=== PATIENT | male | born 1980 | race Two or more races ===

== ENCOUNTER 2016-04-23 04:37 | Emergency (ER) | payer OTHER ==
[~2016-04-23] VITALS: Ht 167.6 cm; Wt 68.0 kg
[2016-04-23] MEDS ORDERED: FLUORESCEIN SODIUM OPHTH 1 EA STRIP RIGHTEYE STA (04:55)
[2016-04-23] MEDS ORDERED: TETRACAINE HCL/PF 0.5% UD 2 ML BOTTLE RIGHTEYE ONE (05:00)
[2016-04-23] MEDS ORDERED: TETRACAINE HCL/PF 0.5% UD 2 ML BOTTLE ONE (05:00)
[2016-04-23] MEDS ORDERED: FLUORESCEIN SODIUM OPHTH 1 EA STRIP ONE (05:00)
[2016-04-23 07:09] LABS: BASOPHILS # (AUTO) 0.1 /CMM (0.0-0.2); BASOPHILS % (AUTO) 0.8 % (0.0-2.0); DIFF TOTAL % 100 %; EOSINOPHILS % (AUTO) 0.4 % (0.0-6.0); HEMATOCRIT 44 % (39-51); HEMOGLOBIN 14.6 g/dL (13.5-17.5); LYMPHOCYTES # (AUTO) 1.6 /CMM (0.8-4.8); LYMPHOCYTES % (AUTO) 17.8 % (20.0-44.0); MEAN CORPUSCULAR HEMOGLOBIN 28 PG (26.0-33.0); MEAN CORPUSCULAR HGB CONC 34 g/dl (31.0-36.0); MEAN CORPUSCULAR VOLUME 85 fL (80-96); MONOCYTES # (AUTO) 0.5 /CMM (0.1-1.30); MONOCYTES % (AUTO) 5.4 % (2.0-12.0); NEUTROPHILS # (AUTO) 6.9 /CMM (1.8-8.9); NEUTROPHILS % (AUTO) 75.6 % (43.0-81.0); PLATELET COUNT (AUTO) 302 /CMM (150-450); RED BLOOD CELL COUNT(AUTO) 5.16 MIL/uL (4.5-6.0); WHITE BLOOD COUNT (AUTO) 9.1 K/uL (4.3-11.0)
[2016-04-23 07:16] LABS: CALCIUM, SERUM 8.7 mg/dL (8.5-10.1); CREATININE 0.9 mg/dL (0.6-1.3); POTASSIUM 4.4 mmol/L (3.5-5.1)
[2016-04-23 07:30] LABS: INR 0.96 (0.87-1.13); PROTHROMBIN TIME 10.4 SECS (9.5-12.7)
[2016-04-23] MEDS ORDERED: IV NS 0.9% 1,000 ML ONE ×2 (13:00→18:20)
[2016-04-23] MEDS ORDERED: PROPOFOL 20 ML IV ONE ×2 (13:00→18:20)
[2016-04-23] MEDS ORDERED: PROPOFOL 200 MG/20 ML VIAL IV ONE (13:00)
[2016-04-23] MEDS ORDERED: IV SET PRIMARY PUMP SET 1 EA INFUS.SET MC ONE (13:00)
[2016-04-23] MEDS ORDERED: IV SET PRIMARY 1 EA INFUS.SET MC ONE (18:20)
[2016-04-23 19:28] VITALS: BP 135/86
== END 2016-04-23 20:31 | disposition home or self-care (01) ==
LOC: ER 04:40
DX: S93.125A Dislocation of metatarsophalangeal joint of left lesser toe(s), initial encounter (principal); S92.332A Displaced fracture of third metatarsal bone, left foot, initial encounter for closed fracture; S02.31XA Fracture of orbital floor, right side, initial encounter for closed fracture; S05.11XA Contusion of eyeball and orbital tissues, right eye, initial encounter; F17.200 Nicotine dependence, unspecified, uncomplicated; Z91.013 Allergy to seafood; V49.49XA Driver injured in collision with other motor vehicles in traffic accident, initial encounter; Y93.89 Activity, other specified; Y92.89 Other specified places as the place of occurrence of the external cause; Y99.9 Unspecified external cause status
CPT/HCPCS: 28475 ×3; 36415; 70450; 70486; 71010; 73080; 73630 ×2; 73660; 80048; 85025; 85730; 87081; 93005; 99285; A4606; J2704 ×2; J7030 ×2; Z7610